=== PATIENT | male | born 1935 | race Caucasian/White ===

== ENCOUNTER 2023-02-05 11:05 | Day surgery (SDC) | payer OTHER ==
[2023-02-05] VITALS (7 sets, daily range): BP systolic 107–133; BP diastolic 58–72; PULSE 60–64; RESP 9–13; TEMP 98.4; O2SAT 97–99
[~2023-02-05] VITALS: Ht 177.8 cm; Wt 90.5 kg
[2023-02-05] MEDS ORDERED: normal saline 1000ml 1,000 ML IV SCH ×2 (11:30→16:05)
[2023-02-05] MEDS ORDERED: vancomycin 1,500 MG in NS 300ml IV soln IV ONE (11:45)
[2023-02-05] MEDS ORDERED: cefazolin 2gm/D5W 100mL 100 ML IV ONE (11:45)
[2023-02-05 12:01] LABS: BASOPHILS # (AUTO) 0.1 X10'3 (0-0.2); BASOPHILS % (AUTO) 1.2 % (0-1); EOSINOPHILS # (AUTO) 0.1 X10'3 (0-0.9); EOSINOPHILS % (AUTO) 1.3 % (0-6); HEMATOCRIT 43.2 % (42.0-52.0); HEMOGLOBIN 14.6 g/dl (14.0-17.9); LYMPHOCYTES % (AUTO) 21.1 % (21-51); MEAN CORPUSCULAR HEMOGLOBIN 35.8 PG (27.0-31.0); MEAN CORPUSCULAR HGB CONC 33.7 g/dL (33.0-36.5); MEAN CORPUSCULAR VOLUME 106.4 FL (78-98); MEAN PLATELET VOLUME 8.9 FL (7.4-10.4); MONOCYTES # (AUTO) 0.4 X10'3 (0-0.9); MONOCYTES % (AUTO) 9.1 % (2-12); NEUTROPHILS # (AUTO) 3.2 X10'3 (1.8-7.7); NEUTROPHILS % (AUTO) 67.3 % (42-75); PLATELET COUNT 182 X10'3 (140-440); RED BLOOD COUNT 4.06 X10'6 (4.70-6.10); RED CELL DISTRIBUTION WIDTH 17.1 % (11.5-14.5); WHITE BLOOD COUNT 4.8 X10'3 (4.5-11.0)
[2023-02-05] MEDS ORDERED: VIT1CAPS46 PO (12:01)
[2023-02-05] MEDS ORDERED: OMEP40CA21 PO (12:01)
[2023-02-05] MEDS ORDERED: CHOL500049 PO (12:02)
[2023-02-05] MEDS ORDERED: MULT-1085 PO (12:02)
[2023-02-05 12:07] LABS: ALBUMIN 4.2 G/DL (3.4-5.0); ANION GAP 8 (8-16); BLOOD UREA NITROGEN 14 MG/DL (7-18); BUN/CREATININE RATIO 13.3 (10.0-20.0); CALCIUM 9.6 MG/DL (8.5-10.1); CHLORIDE 106 MMOL/L (99-107); CREATININE 1.05 MG/DL (0.60-1.10); GLUCOSE 89 MG/DL (70-104); MAGNESIUM 2.2 MG/DL (1.5-2.4); POTASSIUM 4.1 MMOL/L (3.5-5.1); SODIUM 140 MMOL/L (135-145); TOTAL CARBON DIOXIDE 26.4 MMOL/L (24-32); eCRCL 50 ML/MIN; eGFR 67 ML/MIN
[2023-02-05 12:09] LABS: PROTHROMBIN TIME 10.9 SECONDS (9.0-12.0)
[2023-02-05] MEDS ORDERED: LIDOCAINE 2%/EPI 1:100,000 inj. Multi-dose 20 ML VIAL ONE (14:39)
[2023-02-05] MEDS ORDERED: vancomycin 1,000mg inj ONE (14:39)
[2023-02-05] MEDS ORDERED: midazolam 1 mg/ML 2ml injection ONE ×2 (14:39→15:08)
[2023-02-05] MEDS ORDERED: fentaNYL/PF 50MCG/1 ML 2ML syringe ONE ×2 (14:39→15:08)
[2023-02-05] MEDS ORDERED: proCHLORperazine 10 MG/2 ml inj ONE (14:48)
== END 2023-02-05 17:40 | disposition home or self-care (01) ==
LOC: SSTAY O 11:05
PROVIDERS: ATTEND Internal Medicine Cardiovascular Disease
DX: Z45.010 Encounter for checking and testing of cardiac pacemaker pulse generator [battery] (principal); I45.2 Bifascicular block; Z85.46 Personal history of malignant neoplasm of prostate; Z79.899 Other long term (current) drug therapy; Z90.49 Acquired absence of other specified parts of digestive tract; Z95.2 Presence of prosthetic heart valve; Z98.890 Other specified postprocedural states; Z82.49 Family history of ischemic heart disease and other diseases of the circulatory system; Z72.89 Other problems related to lifestyle
CPT/HCPCS: 33228; 36415; 80048; 83735; 85025; 85610; 93005; 99152; 99153; C1786; J0780; J2250; J3010; J3370; J7030; A6258

== ENCOUNTER 2024-07-07 07:38 | Inpatient (IN) | payer OTHER, MEDICARE ==
[~2024-07-07] VITALS: Ht 177.8 cm; Wt 91.0 kg
[~2024-07-07 07:38] MED LIST: CHOL500049 PO; MULT-1085 PO; OMEP40CA21 PO; VIT1CAPS46 PO
[2024-07-07] MEDS ORDERED: iohexol 350MG/ML 100ml bottle IV ONE (08:01)
[2024-07-07] MEDS: meclizine 12.5mg tablet PO ONE (08:30)
[2024-07-07 09:06] LABS: ALBUMIN 3.4 G/DL (3.4-5.0); ANION GAP 5 (8-16); BLOOD UREA NITROGEN 19 MG/DL (7-18); BUN/CREATININE RATIO 18.8 (10.0-20.0); CALCIUM 8.7 MG/DL (8.5-10.1); CHLORIDE 107 MMOL/L (99-107); CREATININE 1.01 MG/DL (0.60-1.10); GLUCOSE 113 MG/DL (70-104); POTASSIUM 4.1 MMOL/L (3.5-5.1); SODIUM 141 MMOL/L (135-145); eCRCL 51 ML/MIN; eGFR 70 ML/MIN
[2024-07-07 09:08] LABS: BASOPHILS # (AUTO) 0.1 X10'3 (0-0.2); EOSINOPHILS # (AUTO) 0.1 X10'3 (0-0.9); HEMATOCRIT 36.6 % (42.0-52.0); HEMOGLOBIN 12.4 g/dl (14.0-17.9); LYMPHOCYTES # (AUTO) 0.7 X10'3 (1.1-4.8); LYMPHOCYTES % (AUTO) 13.7 % (21-51); MEAN CORPUSCULAR HEMOGLOBIN 34.8 PG (27.0-31.0); MEAN CORPUSCULAR HGB CONC 33.7 g/dL (33.0-36.5); MEAN PLATELET VOLUME 8.4 FL (7.4-10.4); MONOCYTES # (AUTO) 0.4 X10'3 (0-0.9); MONOCYTES % (AUTO) 7.8 % (2-12); NEUTROPHILS % (AUTO) 76.5 % (42-75); PLATELET COUNT 176 X10'3 (140-440); RED BLOOD COUNT 3.56 X10'6 (4.70-6.10); RED CELL DISTRIBUTION WIDTH 16.7 % (11.5-14.5); WHITE BLOOD COUNT 5.2 X10'3 (4.5-11.0)
[2024-07-07 09:10] LABS: APTT 28 SECONDS (22-32); INR 1.1 INR; PROTHROMBIN TIME 11.5 SECONDS (9.0-12.0)
[2024-07-07] MEDS ORDERED: FLO0.4C PO (09:14)
[2024-07-07] MEDS ORDERED: LACT1CAP65 PO (09:17)
[2024-07-07] MEDS: aspirin 81mg tab.chew PO ONE (11:41)
[2024-07-07] MEDS: ondansetron/PF 4mg/2ml inj IV ONE (11:43)
[2024-07-07 11:57] LABS: BILIRUBIN,URINE NEGATIVE (Neg); CLARITY,URINE CLEAR (Clear); COLOR,URINE YELLOW (Yellow); GLUCOSE, URINE NEGATIVE (Neg); KETONES,URINE NEGATIVE (Neg); LEUKOCYTE ESTERASE ,URINE NEGATIVE (Neg); NITRITES, URINE NEGATIVE (Neg); OCCULT BLOOD,URINE NEGATIVE (Neg); PROTEIN,URINE NEGATIVE (Neg); UROBILINOGEN,URINE 0.2 E.U/dL (0.2-1.0)
[2024-07-07 11:58] LABS: UA COLLECTION TYPE NON-SPECIFIED
[2024-07-07] MEDS ORDERED: ondansetron 4mg rapidly disintigrating tab PO PRN (14:00)
[2024-07-07] MEDS ORDERED: acetaminophen 650mg rectal suppository RC PRN (14:00)
[2024-07-07] MEDS ORDERED: magnesium hydroxide 30ml (MOM) UD suspension PO PRN (14:00)
[2024-07-07] MEDS ORDERED: bisacodyl 10mg suppository rectal RC PRN (14:00)
[2024-07-07] MEDS ORDERED: acetaminophen 325mg tablet PO PRN ×2 (14:00)
[2024-07-07] MEDS ORDERED: HYDROcodone/acetaminophen 5mg/325mg tablet PO PRN (14:00)
[2024-07-07] MEDS ORDERED: diphenhydrAMINE 25mg capsule PO PRN (14:00)
[2024-07-07] MEDS ORDERED: ondansetron/PF 4mg/2ml inj IV PRN (14:00)
[2024-07-07] MEDS ORDERED: morphine 2 MG/ML inj. syringe IV PRN ×2 (14:00)
[2024-07-07] MEDS ORDERED: diphenhydrAMINE 50 mg/ml inj IV PRN (14:00)
[2024-07-07] MEDS ORDERED: mag hydrox/Alum hydrox/simeth 30ml oral suspension PO PRN (14:00)
[2024-07-07] MEDS ORDERED: HYDROcodone/acetaminophen 10/325mg tab PO PRN (14:00)
[2024-07-07 15:10] LABS: THYROID STIMULATING HORMONE 2.84 ulU/ml (0.34-4.50)
[2024-07-07 15:42] LABS: HEMOGLOBIN A1C 5.4 % (4.5-6.2)
[2024-07-07 15:45] LABS: APTT 21 SECONDS (22-32); PROTHROMBIN TIME 10.9 SECONDS (9.0-12.0)
[2024-07-07 16:00] LABS: MAGNESIUM 2.1 MG/DL (1.5-2.4); PHOSPHORUS 3.3 MG/DL (2.3-4.5)
[2024-07-07] MEDS: normal saline 1000ml 1,000 ML IV SCH (16:56)
[2024-07-07] MEDS: docusate sod 100mg capsule PO SCH (18:26)
[2024-07-07 20:30] VITALS: BP 132/80; PULSE 96; RESP 18; TEMP 97.8; O2SAT 98
[2024-07-07] MEDS ORDERED: temazepam 15mg capsule PO PRN (21:00)
[2024-07-07 22:00] VITALS: BP 132/1; PULSE 96; RESP 16; TEMP 97.7; O2SAT 92
[2024-07-08 02:00] VITALS: BP 107/62; PULSE 75; RESP 16; TEMP 98.6; O2SAT 100
[2024-07-08 06:00] VITALS: BP 115/65; PULSE 71; RESP 16; TEMP 98.1; O2SAT 95
[2024-07-08 06:12] LABS: BASOPHILS # (AUTO) 0.1 X10'3 (0-0.2); BASOPHILS % (AUTO) 1.2 % (0-1); EOSINOPHILS # (AUTO) 0.1 X10'3 (0-0.9); EOSINOPHILS % (AUTO) 1.4 % (0-6); HEMATOCRIT 37.5 % (42.0-52.0); HEMOGLOBIN 12.7 g/dl (14.0-17.9); LYMPHOCYTES # (AUTO) 0.8 X10'3 (1.1-4.8); LYMPHOCYTES % (AUTO) 14.3 % (21-51); MEAN CORPUSCULAR HGB CONC 33.8 g/dL (33.0-36.5); MEAN CORPUSCULAR VOLUME 103.6 FL (78-98); MEAN PLATELET VOLUME 8.8 FL (7.4-10.4); MONOCYTES # (AUTO) 0.6 X10'3 (0-0.9); MONOCYTES % (AUTO) 10.7 % (2-12); NEUTROPHILS # (AUTO) 4.2 X10'3 (1.8-7.7); NEUTROPHILS % (AUTO) 72.4 % (42-75); PLATELET COUNT 191 X10'3 (140-440); RED BLOOD COUNT 3.62 X10'6 (4.70-6.10); RED CELL DISTRIBUTION WIDTH 17.1 % (11.5-14.5); WHITE BLOOD COUNT 5.8 X10'3 (4.5-11.0)
[2024-07-08 07:05] LABS: ALANINE AMINOTRANSFERASE 14 U/L (12-78); ALBUMIN 3.1 G/DL (3.4-5.0); ALKALINE PHOSPHATASE 56 IU/L (46-116); ANION GAP 10 (8-16); ASPARTATE AMINO TRANSFERASE 13 U/L (10-37); BILIRUBIN,TOTAL 0.7 MG/DL (0.1-1.0); BLOOD UREA NITROGEN 18 MG/DL (7-18); BUN/CREATININE RATIO 18.2 (10.0-20.0); CALCIUM 8.7 MG/DL (8.5-10.1); CHLORIDE 112 MMOL/L (99-107); CHOL/HDL RATIO 3.7 (0.00-4.99); CHOLESTEROL 187 MG/DL (0-200); CREATININE 0.99 MG/DL (0.60-1.10); GLUCOSE 92 MG/DL (70-104); HDL CHOLESTEROL 51 MG/DL (35-60); LDL CHOLESTEROL 109 MG/DL (50-100); POTASSIUM 3.9 MMOL/L (3.5-5.1); SODIUM 146 MMOL/L (135-145); TOTAL PROTEIN 6.2 G/DL (6.4-8.2); TRIGLYCERIDES 97 MG/DL (20-135); eCRCL 52 ML/MIN; eGFR 71 ML/MIN
[2024-07-08] MEDS: aspirin 81mg, enteric-coated 1 TAB TABLET.DR PO SCH (08:40)
[2024-07-08] MEDS: atorvastatin 20mg tablet PO SCH (08:41)
[2024-07-08 08:45] VITALS: RESP 18; O2SAT 94
[2024-07-08 10:00] VITALS: BP 98/56; PULSE 64; RESP 16; TEMP 98; O2SAT 94
[2024-07-08] MEDS ORDERED: LISI2.5T14 PO (13:21)
[2024-07-08] MEDS ORDERED: ATOR20TA66 PO (13:21)
[2024-07-08] MEDS ORDERED: ASPI81TA52 PO (13:21)
== END 2024-07-08 14:45 | disposition home or self-care (01) | DRG 69 ==
LOC: ER 07:38 → ED HOLD 15:02 → ORTHO 4S 20:30
PROVIDERS: ADMIT Family Medicine; ATTEND Family Medicine
PROC: B3251ZZ Computerized Tomography (CT Scan) of Bilateral Common Carotid Arteries using Low Osmolar Contrast (ICD-10-PCS; principal; 2024-07-07)
PROC: B32G1ZZ Computerized Tomography (CT Scan) of Bilateral Vertebral Arteries using Low Osmolar Contrast (ICD-10-PCS; 2024-07-07)
PROC: B32R1ZZ Computerized Tomography (CT Scan) of Intracranial Arteries using Low Osmolar Contrast (ICD-10-PCS; 2024-07-07)
PROC: B3281ZZ Computerized Tomography (CT Scan) of Bilateral Internal Carotid Arteries using Low Osmolar Contrast (ICD-10-PCS; 2024-07-07)
DX: G45.9 Transient cerebral ischemic attack, unspecified (principal); N40.0 Benign prostatic hyperplasia without lower urinary tract symptoms; K21.9 Gastro-esophageal reflux disease without esophagitis; I50.9 Heart failure, unspecified; I11.0 Hypertensive heart disease with heart failure; Z85.46 Personal history of malignant neoplasm of prostate; Z95.0 Presence of cardiac pacemaker; Z95.2 Presence of prosthetic heart valve; Z79.899 Other long term (current) drug therapy
CPT/HCPCS: 36415; 70450; 70496; 70498; 71045; 80048; 80053; 80061; 81003; 83036; 83735; 83880; 84100; 84443; 84484; 85025; 85610; 85730; 86885; 86900; 86901; 87081; 93005; 93306; 96374; 97161; 97530; 99285; G0378; J2405; J7030; J8597; Q9967